=== PATIENT | male | born 1945 | race Caucasian/White ===

== ENCOUNTER 2019-09-12 11:33 | Emergency (ER) | payer OTHER ==
[2019-09-12 11:36] VITALS: Wt 97.7 kg
[2019-09-12 11:55] LABS: BASOPHILS 0.4 % (0-2); EOSINOPHILS 1.5 % (0-7); HEMATOCRIT 39.1 % (42.0-54.0); IMMATURE GRANULOCYTES 0.2 % (0-5); LYMPHOCYTES 24.6 % (15-50); MCH 29.5 pg (26.0-34.0); MCHC 33.2 g/dL (31.0-37.0); MCV 88.9 fL (80.0-100.0); MEAN PLATELET VOLUME 12.1 fL (7.4-10.4); MONOCYTES 11.1 % (2-11); NEUTROPHILS 62.2 % (40-80); PLATELET COUNT 138 10x3/uL (130-400); RDW 13.8 % (11.5-14.5); WBC 4.6 10x3/uL (4.8-10.8)
[2019-09-12] MEDS ORDERED: OXYCONTIN10 MG PO (12:02)
[2019-09-12] MEDS ORDERED: RESTORIL15 MG PO (12:03)
[2019-09-12] MEDS ORDERED: LIPITOR40 MG PO (12:03)
[2019-09-12] MEDS ORDERED: MOBIC7.5 MG PO (12:03)
[2019-09-12] MEDS ORDERED: PEPCID AC20 MG PO (12:04)
[2019-09-12] MEDS ORDERED: [UNRECOGNIZED DRUG - OTHER] PO (12:04)
[2019-09-12] MEDS ORDERED: MAG-OX 400 MG400 MG PO (12:05)
[2019-09-12] MEDS ORDERED: CBD (12:05)
[2019-09-12] MEDS ORDERED: FISH OIL 1,0001 CA1 PO (12:05)
[2019-09-12] MEDS ORDERED: [UNRECOGNIZED DRUG - OTHER] (12:06)
[2019-09-12] MEDS ORDERED: [UNRECOGNIZED DRUG - OTHER] (12:06)
[2019-09-12] MEDS ORDERED: [UNRECOGNIZED DRUG - OTHER] (12:07)
[2019-09-12] MEDS ORDERED: TURKEY TAIL MUSHROOM (12:07)
[2019-09-12 12:10] LABS: APTT 34.4 SECONDS (22.8-39.4); INR 1.22 (0.85-1.17); PROTIME 15.4 SECONDS (11.6-15.0)
[2019-09-12 12:12] LABS: CALC OSMOLALITY 284 mosm/kg (275-300); CALCIUM 9.4 mg/dL (8.5-10.1); CARBON DIOXIDE 26.7 mmol/L (21.0-32.0); CHLORIDE - SERUM 107 mmol/L (98-107); CREATININE - SERUM 1.2 mg/dL (0.6-1.3); GLUCOSE 137 mg/dL (74-106); POTASSIUM - SERUM 3.7 mmol/L (3.5-5.1); SODIUM 140 mmol/L (136-145); UREA NITROGEN 25 mg/dL (7-18); eGFR NON AFRICAN AMERICAN 63 mL/min (90-120)
[2019-09-12 12:30] LABS: ALBUMIN 3.8 g/dL (3.4-5.0); ALKALINE PHOSPHATASE 71 U/L (30-120); ALT (SGPT) 22 U/L (10-68); BILIRUBIN - TOTAL 0.84 mg/dL (0.2-1.3); CKMB 0.9 U/L (0.0-3.6); CREATINE KINASE 70 UL (21-232); PROTEIN - SERUM 6.7 g/dL (6.4-8.2); TROPONIN-I < 0.017 ng/mL (0.000-0.060)
[2019-09-12 13:02] LABS: BACTERIA FEW /hpf (NEGATIVE); BILIRUBIN NEGATIVE (NEGATIVE); EPITHELIAL CELLS 0-5 /hpf (0-5); GLUCOSE NEGATIVE (NEGATIVE); KETONE SMALL mg/dL (NEGATIVE); NITRITE NEGATIVE (NEGATIVE); RED CELLS - URINE NONE SEEN /hpf (0-5); SPECIFIC GRAVITY 1.025 (1.005-1.020); UROBILINOGEN NORMAL (NORMAL); WHITE CELLS - URINE RARE /hpf (NEGATIVE)
[2019-09-12 14:20] VITALS: BP 127/70
== END 2019-09-12 14:20 | disposition home or self-care (01) ==
LOC: D.ER 11:33
PROVIDERS: Family Medicine
DX: R53.1 Weakness (principal); Z86.73 Personal history of transient ischemic attack (TIA), and cerebral infarction without residual deficits; K21.9 Gastro-esophageal reflux disease without esophagitis